=== PATIENT | male | born 1995 ===

== ENCOUNTER 2025-04-17 06:16 | Day surgery (SDC) | payer BC, SELFPAY | END 2025-04-17 10:42 | disposition home or self-care (01) | LOC: GI 06:16 | PROVIDERS: ATTENDING PHYSICIAN Internal Medicine Gastroenterology | DX: K50.00 Crohn's disease of small intestine without complications (principal); Z98.0 Intestinal bypass and anastomosis status | CPT/HCPCS: 45378 ==